=== PATIENT | female | born 1980 | race Caucasian/White ===

== ENCOUNTER 2020-05-22 02:59 | Emergency (ER) | payer OTHER ==
[~2020-05-22] VITALS: Ht 185.4 cm; Wt 54.0 kg
[2020-05-22 03:04] VITALS: BP 151/94
--- NOTE | 2020-05-22 04:10 | NUR ---
PT WAS AT HOME STOOD UP AND FELT LIKE HER BACK GO PUT, SHE FELL TO THE FLOOR AND REQUIRED ASSITANCE TO GET UP. HAVING 10/10 PAIN. UNABLE TO LAY OR SIT ANY ANY COMFORTABLE POSITION DUE TO CONSTANT PAIN. PT STATES SHE CONTINUES TO HAVE BACK SPASMS. DENIES N/T TO EXTREMITIES. HAS A HX OF PRIOR DISCS INJURIES TO BACK. PT HAS A TEMP DIALYSIS CATH TO R UPPER CHEST, OLD AV SHUNT TO LEFT ARM NONFUCTIONING. BED IN LOWEST POSITION AND SIDERAIL UP X 1. ALLERGIES - NSAIDS, BACLOFEN, GABAPENTIN HX - ESRD
--- NOTE | 2020-05-22 04:10 | NUR ---
ER AT BEDSIDE
[2020-05-22] MEDS ORDERED: HYDROcodone/APAP 5/325 MG 1 TAB TAB ONE (04:14)
[2020-05-22] MEDS ORDERED: HYDROcodone/APAP 5/325 MG 1 TAB TAB PO ONE (04:35)
[2020-05-22 04:38] VITALS: BP 151/94
--- NOTE | 2020-05-22 04:38 | NUR ---
Patient discharged with v/s stable. Written and verbal after care instructions given and explained. Patient verbalized understanding. Ambulatory with steady gait. All questions addressed prior to discharge. Advised to follow up with PMD.
== END 2020-05-22 04:38 | disposition home or self-care (01) ==
LOC: MED 02:59
DX: M54.5 Low back pain (principal); G89.29 Other chronic pain; I12.0 Hypertensive chronic kidney disease with stage 5 chronic kidney disease or end stage renal disease; N18.6 End stage renal disease; Z99.2 Dependence on renal dialysis; Z88.8 Allergy status to other drugs, medicaments and biological substances
CPT/HCPCS: 99283

== ENCOUNTER 2020-11-28 12:10 | Emergency (ER) | payer OTHER ==
[~2020-11-28] VITALS: Ht 185.4 cm; Wt 104.3 kg
[2020-11-28 12:13] VITALS: BP 136/83
--- NOTE | 2020-11-28 13:27 | NUR ---
40 Y/O FEMALE BIB SELF C/O DYSURIA X 3 DAYS. PT STATES BURNING WITH URINATION, ITHING, PRESENCE OF NAUSEA/VOMITING, LOWER BACK/FLANK PAIN, AND CLOUODY SCOTT-COLORED URINE. DENIES ANY FEVER/CHILLS. PT STATES TAKING TYLENOL WITH CODEINE TO ADDRESS PAIN YESTERDAY; SOMEWHAT EFFCETIVE. PREVIOUS HX OF BLADDER/KIDNEY INFECTION THAT TURNED SEPTIC. AO4, BREATHING EVEN AND UNLABORED, SKIN WARM AND DRY. BED IN LOWEST POSITION, LOCKED, X1 SIDERAIL UP. PMHX - ESRD (DIALYSIS 2XS/WEEK) ALLERGIES - BACLOFEN, GABAPENTIN
[2020-11-28] MEDS ORDERED: ONDANSETRON 4 MG ODT PO ONE (14:00)
[2020-11-28] MEDS ORDERED: cefTRIAXone 1,000 MG in LIDOCAINE MPF 1% 2.1 ML IM ONE (14:00)
[2020-11-28] MEDS ORDERED: ONDA4TAB PO (14:05)
[2020-11-28] MEDS ORDERED: CEPH500C16 PO (14:05)
[2020-11-28] MEDS ORDERED: ACET-503 PO (14:05)
[2020-11-28] MEDS ORDERED: cefTRIAXone 1,000 MG VIAL ONE (14:16)
[2020-11-28] MEDS ORDERED: LIDOCAINE MPF 1% 5 ML ONE (14:16)
--- NOTE | 2020-11-28 14:28 | NUR ---
Patient discharged with v/s stable. Written and verbal after care instructions ABOUT UTI given and explained. Patient alert, oriented and verbalized understanding of instructions. Ambulatory with steady gait. All questions addressed prior to discharge. ID band removed. Patient advised to follow up with PMD. Rx of ACETAMINOPHEN/CODEINE, CEPHALEXIN, AND ZOFRAN given. Patient educated on indication of medication including possible reaction and side effects. Opportunity to ask questions provided and answered.
[2020-11-28 14:29] VITALS: BP 136/83
== END 2020-11-28 14:28 | disposition home or self-care (01) ==
LOC: MED 12:10
DX: N39.0 Urinary tract infection, site not specified (principal); I12.0 Hypertensive chronic kidney disease with stage 5 chronic kidney disease or end stage renal disease; N18.6 End stage renal disease; Z99.2 Dependence on renal dialysis; Z79.899 Other long term (current) drug therapy; Z88.6 Allergy status to analgesic agent; Z88.8 Allergy status to other drugs, medicaments and biological substances; Z90.49 Acquired absence of other specified parts of digestive tract; Z98.890 Other specified postprocedural states
CPT/HCPCS: 81002; 81025; 96372; 99283; J0696; J2001; Q0162

== ENCOUNTER 2020-12-08 23:55 | Emergency (ER) | payer OTHER ==
[~2020-12-08] VITALS: Ht 185.4 cm; Wt 105.7 kg
[~2020-12-08 23:55] MED LIST: ACET-503 PO; CEPH500C16 PO; ONDA4TAB PO
[2020-12-09] VITALS: BP 156/90
--- NOTE | 2020-12-09 | NUR ---
TO BED AMBULATORY
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
[2020-12-09] MEDS ORDERED: HYDROcodone/APAP 5/325 MG 1 TAB TAB PO ONE (00:25)
[2020-12-09] MEDS ORDERED: ACET-9527 PO (00:34)
[2020-12-09] MEDS ORDERED: CYCL-654 PO (00:34)
[2020-12-09 00:52] VITALS: BP 156/90
--- NOTE | 2020-12-09 00:53 | NUR ---
Patient discharged with v/s stable. Written and verbal after care instructions given and explained. Patient alert, oriented and verbalized understanding of instructions. Ambulatory with steady gait. All questions addressed prior to discharge. ID band removed. Patient advised to follow up with PMD. Rx of NORCO; FLEXERIL given. Patient educated on indication of medication including possible reaction and side effects. Opportunity to ask questions provided and answered.
== END 2020-12-09 00:53 | disposition home or self-care (01) ==
LOC: MED 23:55
DX: S29.012D Strain of muscle and tendon of back wall of thorax, subsequent encounter (principal); W01.0XXD Fall on same level from slipping, tripping and stumbling without subsequent striking against object, subsequent encounter; I12.0 Hypertensive chronic kidney disease with stage 5 chronic kidney disease or end stage renal disease; N18.6 End stage renal disease
CPT/HCPCS: 99283

== ENCOUNTER 2021-01-25 01:14 | Emergency (ER) | payer OTHER ==
[~2021-01-25] VITALS: Ht 185.4 cm; Wt 99.8 kg
[~2021-01-25 01:14] MED LIST changes: +ACET-9527 PO; +CYCL-654 PO
[2021-01-25 01:25] VITALS: BP 127/84
--- NOTE | 2021-01-25 01:43 | NUR ---
TO ER BED 1
--- NOTE | 2021-01-25 02:50 | NUR ---
40 Y/O FEMALE PRESENTED TO ED C/O LEFT FOOT PAIN X 1 DAY. PT DENIES ANY TRAUMA OR INJURY TO LEFT FOOT, STATES "I WOKE UP THIS MORNING WITH THE PAIN AND HAVE NO IDEA WHY." PT DESCRIBES PAIN 10/10 , STABBING PAIN THAT SHOOTS UP HER LEG WHEN SHE PUTS PRESSURE ON HER LEFT FOOT. OBSERVED SWELLING ON LEFT FOOT , NO REDNESS OR DEFORMITY NOTED. + PEDAL PULSES NOTED. CAP REFIL < 3 SEC. PT STATES SHE TOOK TYLENOL X 2 HRS AGO W/ NO RELIEF. PT STATES SHE TRIED ICE, WARM PACK , WARM BATH W/ NO RELIEF OF PAIN. PT RESTING IN BED, LOCKED AND IN LOWEST POSITION, BED FLAT PER PT REQUEST. VSS. NO ACUTE DISTRESS NOTED. PT PROVIDED BLANKET FOR COMFORT AT THIS TIME. 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
[2021-01-25] MEDS: HYDROcodone/APAP 5/325 MG 1 TAB TAB PO ONE (02:55)
--- NOTE | 2021-01-25 02:55 | NUR ---
RADIOLOGY AT BEDSIDE.
[2021-01-25] MEDS ORDERED: ACET-9527 PO (03:09)
--- NOTE | 2021-01-25 03:35 | NUR ---
Per ERMD, crutches provided for patient. Patient demonstrates proper use of crutches.
[2021-01-25 03:38] VITALS: BP 127/84
--- NOTE | 2021-01-25 03:38 | NUR ---
Patient discharged with v/s stable. Written and verbal after care instructions given and explained. Patient alert, oriented and verbalized understanding of instructions. Ambulatory with steady gait. All questions addressed prior to discharge. ID band removed. Patient advised to follow up with PMD. Rx of Hydrocodon-Acetaminophen given. Patient educated on indication of medication including possible reaction and side effects. Opportunity to ask questions provided and answered.
== END 2021-01-25 03:38 | disposition home or self-care (01) ==
LOC: MED 01:14
DX: S99.922A Unspecified injury of left foot, initial encounter (principal); I12.0 Hypertensive chronic kidney disease with stage 5 chronic kidney disease or end stage renal disease; N18.6 End stage renal disease; Z99.2 Dependence on renal dialysis; Z79.899 Other long term (current) drug therapy; Z88.8 Allergy status to other drugs, medicaments and biological substances; X58.XXXA Exposure to other specified factors, initial encounter; Y93.89 Activity, other specified; Y92.89 Other specified places as the place of occurrence of the external cause; Y99.8 Other external cause status
CPT/HCPCS: 73630; 99283

== ENCOUNTER 2021-02-07 00:40 | Emergency (ER) | payer OTHER ==
[~2021-02-07] VITALS: Ht 185.4 cm; Wt 47.2 kg
[2021-02-07 00:43] VITALS: BP 138/87
--- NOTE | 2021-02-07 00:54 | NUR ---
PT AMBULATED TO BED #3. URINE SPECIMEN COLLECTED
[2021-02-07] MEDS ORDERED: ONDANSETRON 4 MG ODT PO ONE (01:20)
[2021-02-07] MEDS ORDERED: traMADol 50 MG TAB PO ONE (01:20)
[2021-02-07] MEDS ORDERED: cephALEXin 500 MG CAP PO ONE (01:20)
--- NOTE | 2021-02-07 01:21 | NUR ---
40/F C/O ABD PAIN WITH NAUSEA, PAIN DURING URINATION, URINARY HESITANCY, AND LOW BACK PAIN X 1 DAY. PT DENIES ANY FEVER, CHILLS, N/V/D MEDHX- ERSD STAGE 5, (DIALYSIS- /THU), AV FISTULA TO LT UPPER ARM ALLX- BACLOFEN, MOTRIN, GABAPENTIN
[2021-02-07 01:36] LABS: BASOPHILS # (AUTO) 0.1 K/uL (0.00-0.22); BASOPHILS % (AUTO) 0.6 % (0.0-2.0); EOSINOPHILS # (AUTO) 0.5 K/uL (0-0.4); EOSINOPHILS % (AUTO) 3.7 % (0.0-4.0); HEMATOCRIT 45.3 % (36-48); HEMOGLOBIN 14.5 g/dL (12.0-16.0); LYMPHOCYTES # (AUTO) 2.2 K/uL (2.5-16.5); LYMPHOCYTES % (AUTO) 15.6 % (20.5-51.1); MEAN CORPUSCULAR HEMOGLOBIN 29 pg (27-31); MEAN CORPUSCULAR HGB CONC 32 g/dL (33-37); MEAN CORPUSCULAR VOLUME 90.5 fL (80-94); MONOCYTES # (AUTO) 0.9 K/uL (0.8-1.0); MONOCYTES % (AUTO) 6.6 % (1.7-9.3); NEUTROPHILS # (AUTO) 10.2 K/uL (1.8-7.7); NEUTROPHILS % (AUTO) 73.5 % (42.2-75.2); PLATELET COUNT (AUTO) 226 K/uL (140-450); RED BLOOD CELL COUNT(AUTO) 5.01 MIL/uL (4.20-5.40); RED CELL DISTRIBUTION WIDTH 19.7 % (11.6-13.7); WHITE BLOOD COUNT (AUTO) 13.8 K/uL (4.8-10.8)
[2021-02-07 01:50] LABS: ANION GAP 15.1 (8-16); CARBON DIOXIDE 28.9 mmol/L (21-32); TOTAL BILIRUBIN 0.4 mg/dL (0.0-1.0)
[2021-02-07 01:53] LABS: CREATININE 7.6 mg/dL (0.6-1.3)
[2021-02-07 02:28] LABS: APPEARANCE,URINE CLEAR (CLEAR); BILIRUBIN,URINE NEGATIVE (NEGATIVE); BLOOD, URINE TRACE-L (NEGATIVE); COLOR,URINE YELLOW (YELLOW); LEUKOCYTE ESTERASE ,URINE NEGATIVE (NEGATIVE); NITRITE, URINE NEGATIVE (NEGATIVE); PH,URINE 7.5 (5.0-9.0); UGLUCOSE NEGATIVE (NEGATIVE)
[2021-02-07 02:41] LABS: RBC,URINE 0-5 /HPF (0-5); WBC,URINE 0-5 /HPF (0-5)
[2021-02-07] MEDS ORDERED: CEPH-588 PO (03:33)
[2021-02-07] MEDS ORDERED: TRAM50TA3 PO (03:44)
[2021-02-07 03:49] VITALS: BP 149/81
--- NOTE | 2021-02-07 03:49 | NUR ---
DCPatient discharged with v/s stable. Written and verbal after care instructions given and explained. Patient alert, oriented and verbalized understanding of instructions. Ambulatory with steady gait. All questions addressed prior to discharge. IV ACCESS AND ID band removed. Patient advised to follow up with PMD. Rx of TORADOL, KEFLEX given. Patient educated on indication of medication including possible reaction and side effects. Opportunity to ask questions provided and answered.
== END 2021-02-07 03:49 | disposition home or self-care (01) ==
LOC: MED 00:40
DX: N39.0 Urinary tract infection, site not specified (principal); I10 Essential (primary) hypertension; Z88.6 Allergy status to analgesic agent; Z88.8 Allergy status to other drugs, medicaments and biological substances; Z79.899 Other long term (current) drug therapy
CPT/HCPCS: 36415; 80053; 81001; 81025; 83605; 85025; 87040; 87086; 99284; Q0162

== ENCOUNTER 2021-05-29 01:07 | Emergency (ER) | payer OTHER ==
[~2021-05-29] VITALS: Ht 185.4 cm; Wt 99.8 kg
[~2021-05-29 01:07] MED LIST changes: +CEPH-588 PO; +TRAM50TA3 PO
[2021-05-29 01:26] VITALS: BP 140/95
--- NOTE | 2021-05-29 01:26 | NUR ---
TO BED AMBULATORY
[2021-05-29] MEDS ORDERED: HYDROcodone/APAP 5/325 MG 1 TAB TAB PO ONE (01:50)
--- NOTE | 2021-05-29 02:42 | NUR ---
patient to the bathroom. ambulated well.
[2021-05-29] MEDS ORDERED: IBUP-2213 PO (03:18)
[2021-05-29] MEDS ORDERED: ACET-503 PO (03:29)
--- NOTE | 2021-05-29 03:37 | NUR ---
Patient discharged with v/s stable. Written and verbal after care instructions given and explained. Patient alert, oriented and verbalized understanding of instructions. Ambulatory with steady gait. All questions addressed prior to discharge. ID band removed. Patient advised to follow up with PMD. Rx of Acetaminophen-codeine given. Patient educated on indication of medication including possible reaction and side effects. Opportunity to ask questions provided and answered.
[2021-05-29 03:49] VITALS: BP 140/95
== END 2021-05-29 03:37 | disposition home or self-care (01) ==
LOC: MED 01:07
DX: S40.012A Contusion of left shoulder, initial encounter (principal); I12.0 Hypertensive chronic kidney disease with stage 5 chronic kidney disease or end stage renal disease; N18.6 End stage renal disease; Z99.2 Dependence on renal dialysis; W01.198A Fall on same level from slipping, tripping and stumbling with subsequent striking against other object, initial encounter; Y92.89 Other specified places as the place of occurrence of the external cause; Y93.89 Activity, other specified; Y99.8 Other external cause status
CPT/HCPCS: 73030; 99283; Q0092

== ENCOUNTER 2021-06-09 22:48 | Emergency (ER) | payer OTHER ==
[~2021-06-09] VITALS: Ht 185.4 cm; Wt 108.4 kg
[2021-06-09 22:50] VITALS: BP 147/89
--- NOTE | 2021-06-09 23:01 | NUR ---
PT SENT TO LOBBY
--- NOTE | 2021-06-09 23:15 | NUR ---
LABS DRAWN BY MOISÉS FROM LAB
--- NOTE | 2021-06-09 23:20 | NUR ---
URINE SAMPLE WALKED TO LAB
[2021-06-09 23:28] LABS: APPEARANCE,URINE SL CLOUDY (CLEAR); BILIRUBIN,URINE NEGATIVE (NEGATIVE); BLOOD, URINE 3+ (NEGATIVE); COLOR,URINE YELLOW (YELLOW); LEUKOCYTE ESTERASE ,URINE NEGATIVE (NEGATIVE); NITRITE, URINE NEGATIVE (NEGATIVE); UGLUCOSE NEGATIVE (NEGATIVE)
[2021-06-09 23:29] LABS: BASOPHILS # (AUTO) 0.1 K/uL (0.00-0.22); EOSINOPHILS # (AUTO) 0.4 K/uL (0-0.4); EOSINOPHILS % (AUTO) 4.6 % (0.0-4.0); HEMATOCRIT 44.3 % (36-48); HEMOGLOBIN 14.4 g/dL (12.0-16.0); LYMPHOCYTES # (AUTO) 2.2 K/uL (2.5-16.5); LYMPHOCYTES % (AUTO) 24.2 % (20.5-51.1); MEAN CORPUSCULAR HEMOGLOBIN 30 pg (27-31); MEAN CORPUSCULAR HGB CONC 32 g/dL (33-37); MEAN CORPUSCULAR VOLUME 93.2 fL (80-94); MONOCYTES # (AUTO) 0.5 K/uL (0.8-1.0); MONOCYTES % (AUTO) 5.7 % (1.7-9.3); NEUTROPHILS # (AUTO) 5.7 K/uL (1.8-7.7); NEUTROPHILS % (AUTO) 64.5 % (42.2-75.2); PLATELET COUNT (AUTO) 194 K/uL (140-450); RED BLOOD CELL COUNT(AUTO) 4.75 MIL/uL (4.20-5.40); RED CELL DISTRIBUTION WIDTH 19.9 % (11.6-13.7); WHITE BLOOD COUNT (AUTO) 8.9 K/uL (4.8-10.8)
[2021-06-09 23:35] LABS: RBC,URINE 11-20 (MOD) /HPF (0-5)
[2021-06-09 23:41] LABS: ALBUMIN 3.3 g/dL (3.4-5.0); CARBON DIOXIDE 26.1 mmol/L (21-32); POTASSIUM 4.1 mmol/L (3.5-5.1); TOTAL BILIRUBIN 0.3 mg/dL (0.0-1.0)
--- NOTE | 2021-06-09 23:46 | NUR ---
PT TAKEN TO CT
[2021-06-10] MEDS ORDERED: MORPHINE SULFATE 4 MG/ML SYR IVP ONE (00:05)
[2021-06-10] MEDS ORDERED: ONDANSETRON 4 MG/2 ML VIAL IVP ONE (00:05)
[2021-06-10] MEDS ORDERED: PANTOPRAZOLE 40 MG INJ VIAL IVP ONE (00:05)
[2021-06-10] MEDS ORDERED: LEVOFLOXACIN 500 MG/D5W PREMIX 100 ML IV ONE (00:20)
--- NOTE | 2021-06-10 01:15 | NUR ---
40/F BIB SELF C/O ABDOMINAL PAIN AND VOMITING. STATES SINCE YESTERDAY SHE HAS HAD WORSENING STABBING ABDOMINAL PAIN AND HAS HAD 5-6 EPISODES OF VOMITING, STATES SHE RECEIVED DIALYSIS YESTERDAY AT 4AM, LEFT ARM FISTULA. DENIES DIARRHA, CP, SOB, FEVER OR CHILLS. REPORTS TAKING IBUPROFEN AND TYLENOL WITH NO HELP. MEDHX: KIDNEY FAILURE (DIALYSIS THURSDAY AND THURSDAY) ALLERGIES: BACLOFEN, GABAPENTIN, NSAIDS
--- NOTE | 2021-06-10 01:49 | NUR ---
PT FELT ITCHY AT IV SITE WHEN LEVAQUIN WAS BEING ADMINISTERED. DIONICIO MACIAS MADE AWARE. ORDERED BENADRYL 25MG IVP ONCE, ORDER CARRIED OUT.
[2021-06-10] MEDS ORDERED: diphenhydrAMINE 50 MG/ML VIAL IVP ONE (01:50)
--- NOTE | 2021-06-10 03:12 | NUR ---
PT IS AWAKE AND ALERT. ALL NEEDS MET AT THIS TIME. VSS. PT IS IN STABLE CONDITION. BED LOCKED IN LOWEST POSITION.
[2021-06-10 03:25] VITALS: BP 143/89
--- NOTE | 2021-06-10 03:25 | NUR ---
Patient discharged with v/s stable. Written and verbal after care instructions given and explained. Patient alert, oriented and verbalized understanding of instructions. Ambulatory with steady gait. All questions addressed prior to discharge. ID band removed. Patient advised to follow up with PMD. Rx of FAMOTIDINE, TRAMADOL, AND CIPROFLOXACIN given. Patient educated on indication of medication including possible reaction and side effects. Opportunity to ask questions provided and answered.
== END 2021-06-10 03:25 | disposition home or self-care (01) ==
LOC: MED 22:48
DX: N39.0 Urinary tract infection, site not specified (principal); Q61.3 Polycystic kidney, unspecified; I12.9 Hypertensive chronic kidney disease with stage 1 through stage 4 chronic kidney disease, or unspecified chronic kidney disease; N18.9 Chronic kidney disease, unspecified; F17.210 Nicotine dependence, cigarettes, uncomplicated; Z98.890 Other specified postprocedural states; Z79.899 Other long term (current) drug therapy; Z88.8 Allergy status to other drugs, medicaments and biological substances; Z90.49 Acquired absence of other specified parts of digestive tract
CPT/HCPCS: 36415; 74176; 80053; 81001; 81025; 82150; 83690; 85025; 87086; 96365; 96375; 99284; C9113; J1200; J1956; J2270; J2405

== ENCOUNTER 2021-08-15 23:20 | Emergency (ER) | payer OTHER ==
[~2021-08-15] VITALS: Ht 185.4 cm; Wt 104.3 kg
[2021-08-15 23:30] VITALS: BP 156/102
--- NOTE | 2021-08-15 23:33 | NUR ---
TO LOBBY A/W BED AMBULATORY
[2021-08-16] MEDS ORDERED: HYDR-5080 PO (00:54)
[2021-08-16] MEDS ORDERED: HYDROcodone/APAP 7.5/325 MG 1 TAB PO ONE (00:55)
[2021-08-16 01:35] VITALS: BP 156/102
== END 2021-08-16 01:36 | disposition home or self-care (01) ==
LOC: MED 23:20
DX: M54.50 Low back pain, unspecified (principal); I10 Essential (primary) hypertension; Z79.899 Other long term (current) drug therapy; Z88.8 Allergy status to other drugs, medicaments and biological substances
CPT/HCPCS: 99283

== ENCOUNTER 2021-08-24 19:05 | Emergency (ER) | payer OTHER ==
[~2021-08-24] VITALS: Ht 185.4 cm; Wt 104.3 kg
[~2021-08-24 19:05] MED LIST changes: +HYDR-5080 PO
[2021-08-24 19:24] VITALS: BP 149/90
--- NOTE | 2021-08-24 19:24 | NUR ---
TO BED AMBULATORY
--- NOTE | 2021-08-24 19:42 | NUR ---
Dr. Hoskins examining patient.
--- NOTE | 2021-08-24 19:45 | NUR ---
RECEIVED IN BED 6 WITH C/O LOWER ABD PAIN WITH HERNIA AND VOMITING SINCE YESTERDAY. IS AWAKE AND ALERT. APPEARS IN NAD.
[2021-08-24] MEDS ORDERED: HYDR-5191 PO (19:52)
--- NOTE | 2021-08-24 19:58 | NUR ---
Patient discharged with v/s stable. Written and verbal after care instructions given and explained. Patient alert, oriented and verbalized understanding of instructions. Ambulatory with steady gait. All questions addressed prior to discharge. ID band removed. Patient advised to follow up with PMD. Rx of HYDROCODONE given. Patient educated on indication of medication including possible reaction and side effects. Opportunity to ask questions provided and answered.
[2021-08-24] MEDS ORDERED: DOPPLER MC ONE (20:15)
== END 2021-08-24 19:58 | disposition home or self-care (01) ==
LOC: MED 19:05
DX: R10.9 Unspecified abdominal pain (principal); I10 Essential (primary) hypertension; Z79.899 Other long term (current) drug therapy; Z88.8 Allergy status to other drugs, medicaments and biological substances
CPT/HCPCS: 99283

== ENCOUNTER 2021-11-05 22:41 | Emergency (ER) | payer OTHER ==
[~2021-11-05] VITALS: Ht 185.4 cm; Wt 104.3 kg
[~2021-11-05 22:41] MED LIST changes: +HYDR-5191 PO
[2021-11-05 23:07] VITALS: BP 153/110
--- NOTE | 2021-11-05 23:14 | NUR ---
PT AMBULATED TO BED 05.
--- NOTE | 2021-11-05 23:33 | NUR ---
41 YO/F BIB SELF W C/O EPIGASTRIC PAIN 9/10 STABBING LIKE NON RAD CONSTANT X3 DAYS + VOMITING WHICH PT RELATES TO HX OF PEPTIC ULCER. PT DENIES BLOOD IN EMESIS. PT DENIES F/C/D/C. PT HAS FISTULA TO L UPPER ARM D/T HX OF PKD. DIALYSIS T,S. PT SITTING IN BED LOCKED IN LOWEST POSITION W X1 SIDERAIL UP. BREATHING EVEN AND UNLABORED. NAD NOTED, WILL CONTINUE TO MONITOR. PMH:PKD ALLERGIES: MUSCLE RELAXANTS.
[2021-11-05] MEDS ORDERED: FAMOTIDINE 20 MG/2 ML VIAL IVP ONE (23:35)
[2021-11-05] MEDS ORDERED: MORPHINE SULFATE 4 MG/ML SYR IVP ONE (23:35)
[2021-11-05 23:50] LABS: BASOPHILS # (AUTO) 0.1 K/uL (0.00-0.22); EOSINOPHILS # (AUTO) 0.3 K/uL (0-0.4); EOSINOPHILS % (AUTO) 3.9 % (0.0-4.0); HEMATOCRIT 38.8 % (36-48); HEMOGLOBIN 12.7 g/dL (12.0-16.0); LYMPHOCYTES # (AUTO) 1.7 K/uL (2.5-16.5); LYMPHOCYTES % (AUTO) 19.5 % (20.5-51.1); MEAN CORPUSCULAR HEMOGLOBIN 32 pg (27-31); MEAN CORPUSCULAR HGB CONC 33 g/dL (33-37); MEAN CORPUSCULAR VOLUME 96.1 fL (80-94); MONOCYTES # (AUTO) 0.7 K/uL (0.8-1.0); MONOCYTES % (AUTO) 7.7 % (1.7-9.3); NEUTROPHILS # (AUTO) 5.8 K/uL (1.8-7.7); NEUTROPHILS % (AUTO) 67.9 % (42.2-75.2); PLATELET COUNT (AUTO) 222 K/uL (140-450); RED BLOOD CELL COUNT(AUTO) 4.03 MIL/uL (4.20-5.40); RED CELL DISTRIBUTION WIDTH 17.1 % (11.6-13.7); WHITE BLOOD COUNT (AUTO) 8.6 K/uL (4.8-10.8)
[2021-11-05 23:51] LABS: APPEARANCE,URINE CLEAR (CLEAR); BILIRUBIN,URINE NEGATIVE (NEGATIVE); BLOOD, URINE TRACE-I (NEGATIVE); COLOR,URINE YELLOW (YELLOW); LEUKOCYTE ESTERASE ,URINE NEGATIVE (NEGATIVE); NITRITE, URINE NEGATIVE (NEGATIVE); PH,URINE 7.5 (5.0-9.0); UGLUCOSE NEGATIVE (NEGATIVE)
[2021-11-06 00:07] LABS: RBC,URINE 0-5 /HPF (0-5); WBC,URINE 0-5 /HPF (0-5)
[2021-11-06 00:15] LABS: ALBUMIN 2.9 g/dL (3.4-5.0); ANION GAP 13.2 (8-16); CARBON DIOXIDE 30.8 mmol/L (21-32); TOTAL BILIRUBIN 0.4 mg/dL (0.0-1.0)
[2021-11-06 00:26] LABS: CREATININE 11.3 mg/dL (0.6-1.3)
--- NOTE | 2021-11-06 00:32 | NUR ---
PT REPORTS ABDOMINAL PAIN IMPROVEMENT.,
--- NOTE | 2021-11-06 01:19 | NUR ---
Mallory davis in [facility] - 11/06/21 at 0120 by SELINA PT AMBULATED TO BATHROOM W STEADY GAIT. PT DENIES ANY PAIN OR SYMPTOMS. VSS
[2021-11-06] MEDS ORDERED: FAMO-92 PO (01:30)
--- NOTE | 2021-11-06 01:30 | NUR ---
PT REPORTS FEELING BETTER, NO NAUSEA, PAIN 2/10.
[2021-11-06 01:38] VITALS: BP 158/93
--- NOTE | 2021-11-06 01:38 | NUR ---
Patient discharged with v/s stable. Written and verbal after care instructions given and explained. Patient alert, oriented and verbalized understanding of instructions. Ambulatory with steady gait. All questions addressed prior to discharge. ID band removed. Patient advised to follow up with PMD. Rx of PEPCID given. Patient educated on indication of medication including possible reaction and side effects. Opportunity to ask questions provided and answered. PT DISCHARGE DONE BY DIONICIO MACIAS.
== END 2021-11-06 01:38 | disposition home or self-care (01) ==
LOC: MED 22:41
DX: L98.499 Non-pressure chronic ulcer of skin of other sites with unspecified severity (principal); R10.13 Epigastric pain; R11.2 Nausea with vomiting, unspecified; I10 Essential (primary) hypertension; Q61.3 Polycystic kidney, unspecified; F17.210 Nicotine dependence, cigarettes, uncomplicated; Z71.6 Tobacco abuse counseling; Z79.899 Other long term (current) drug therapy; Z88.8 Allergy status to other drugs, medicaments and biological substances
CPT/HCPCS: 36415; 80053; 81001; 85025; 87086; 96374; 96375; 99284; J2270; J3490

== ENCOUNTER 2022-03-09 20:11 | Emergency (ER) | payer OTHER ==
[~2022-03-09] VITALS: Ht 185.4 cm; Wt 104.3 kg
[~2022-03-09 20:11] MED LIST changes: +FAMO-92 PO
[2022-03-09 20:20] VITALS: BP 147/74
[2022-03-09] MEDS ORDERED: HYDROcodone/APAP 10/325 MG 1 TAB TAB PO ONE (22:15)
[2022-03-09] MEDS ORDERED: HYDR-5080 PO (22:25)
[2022-03-09 23:19] VITALS: BP 138/68
== END 2022-03-09 23:20 | disposition home or self-care (01) ==
LOC: MED 20:11
DX: S29.012A Strain of muscle and tendon of back wall of thorax, initial encounter (principal); I10 Essential (primary) hypertension; N18.6 End stage renal disease; Z88.5 Allergy status to narcotic agent; Z88.8 Allergy status to other drugs, medicaments and biological substances; X58.XXXA Exposure to other specified factors, initial encounter; Y93.9 Activity, unspecified; Y92.89 Other specified places as the place of occurrence of the external cause; Y99.8 Other external cause status
CPT/HCPCS: 81002; 81025; 99283

== ENCOUNTER 2022-03-30 00:01 | Emergency (ER) | payer OTHER ==
[~2022-03-30] VITALS: Ht 185.4 cm; Wt 108.9 kg
[2022-03-30 00:13] VITALS: BP 154/90
--- NOTE | 2022-03-30 00:14 | NUR ---
TO LOBBY A/W BED AMBULATORY
[2022-03-30] MEDS ORDERED: MORPHINE SULFATE 4 MG/ML SYR IM ONE (00:25)
--- NOTE | 2022-03-30 00:43 | NUR ---
PT AMBULATED TO BED#9
[2022-03-30 01:27] VITALS: BP 116/86
[2022-03-30] MEDS ORDERED: CYCL-711 PO (19:12)
[2022-03-30] MEDS ORDERED: DICL100G5 TP (19:12)
[2022-03-30] MEDS ORDERED: LID5T TP (19:12)
== END 2022-03-30 01:24 | disposition home or self-care (01) ==
LOC: MED 00:01
DX: S33.5XXA Sprain of ligaments of lumbar spine, initial encounter (principal); I10 Essential (primary) hypertension; N18.9 Chronic kidney disease, unspecified; Z88.8 Allergy status to other drugs, medicaments and biological substances; Z88.5 Allergy status to narcotic agent; Z98.890 Other specified postprocedural states; W18.30XA Fall on same level, unspecified, initial encounter; Y93.89 Activity, other specified; Y92.89 Other specified places as the place of occurrence of the external cause; Y99.8 Other external cause status
CPT/HCPCS: 96372; 99283; J2270

== ENCOUNTER 2022-03-30 16:59 | Emergency (ER) | payer OTHER ==
[~2022-03-30] VITALS: Ht 185.4 cm; Wt 109.3 kg
[2022-03-30 17:10] VITALS: BP 175/96
--- NOTE | 2022-03-30 17:19 | NUR ---
PT AMBULATED TO BATHROOM
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
--- NOTE | 2022-03-30 18:10 | NUR ---
Dr. Helm at bedside evaluating patient at bedside.
[2022-03-30] MEDS ORDERED: LIDOCAINE 5% 1 EA PATCH TP STA (18:16)
[2022-03-30] MEDS ORDERED: KETOROLAC 30 MG/ML VIAL IM ONE (18:20)
[2022-03-30] MEDS ORDERED: ACETAMINOPHEN EXTRA STRENGTH 500 MG TAB PO ONE (18:50)
--- NOTE | 2022-03-30 19:05 | NUR ---
PT REFUSING MEDS. DR BARTLETT NOTIFIED
[2022-03-30] MEDS ORDERED: LID5T TP (19:12)
[2022-03-30] MEDS ORDERED: CYCL-711 PO (19:12)
[2022-03-30] MEDS ORDERED: DICL100G5 TP (19:12)
[2022-03-30 19:20] VITALS: BP 175/96
--- NOTE | 2022-03-30 19:20 | NUR ---
Patient discharged with v/s stable. Written and verbal after care instructions given and explained. Patient alert, oriented and verbalized understanding of instructions. Ambulatory with steady gait. All questions addressed prior to discharge. ID band removed. Patient advised to follow up with PMD. Rx of FLEXERIL, LIDODERM 5% PATCH, AND DICLOFENAC SODIUM given. Patient educated on indication of medication including possible reaction and side effects. Opportunity to ask questions provided and answered.
== END 2022-03-30 19:20 | disposition home or self-care (01) ==
LOC: MED 16:59
DX: S30.0XXA Contusion of lower back and pelvis, initial encounter (principal); R07.81 Pleurodynia; I10 Essential (primary) hypertension; Q61.3 Polycystic kidney, unspecified; Z76.5 Malingerer [conscious simulation]; Z88.8 Allergy status to other drugs, medicaments and biological substances; Z79.899 Other long term (current) drug therapy; W19.XXXA Unspecified fall, initial encounter; Y93.89 Activity, other specified; Y92.89 Other specified places as the place of occurrence of the external cause; Y99.8 Other external cause status
CPT/HCPCS: 71101; 72100; 81002; 81025; 99284

== ENCOUNTER 2022-07-07 17:44 | Emergency (ER) | payer OTHER ==
[~2022-07-07] VITALS: Ht 185.4 cm; Wt 107.5 kg
[~2022-07-07 17:44] MED LIST changes: +CYCL-711 PO; +DICL100G5 TP; +LID5T TP
[2022-07-07 18:12] VITALS: BP 164/92
--- NOTE | 2022-07-07 18:40 | NUR ---
41YO FEMALE PT C/O SHARP R HIP PAIN XTODAY. STATES RADIATION DOWN GLUTE AND LEG. STATES PAIN AFTER "STEPPING DOWN". PAIN AT MOST ON MOVEMENT . DENIES RELIEF AFTER TYLENOL . NO PHYSICAL INJURY NOTED . CAP REFILL <3 THROUGHOUT . PT AAOX4, NO VIISBLE DISTRESS. HX: ESPL, DIALYSIS T/SAT ALLERGIES : MUSCLE RELAXANTS
--- NOTE | 2022-07-07 18:43 | NUR ---
PT TAKEN TO XRAY VIA WHEELCHAIR
--- NOTE | 2022-07-07 19:30 | NUR ---
REPORT GIVEN TO FREDRICK SIMMONS. TRANSFER OF CARE AT THIS TIME
--- NOTE | 2022-07-07 19:59 | NUR ---
PENDING XRAY RESULTS. PENDING DISPO
[2022-07-07] MEDS ORDERED: ACET-8386 PO ×2 (20:29→21:23)
[2022-07-07] MEDS ORDERED: SULF-58 PO ×2 (20:29→21:23)
[2022-07-07 20:37] VITALS: BP 164/92
== END 2022-07-07 20:37 | disposition home or self-care (01) ==
LOC: MED 17:44
DX: M25.551 Pain in right hip (principal); M16.11 Unilateral primary osteoarthritis, right hip; N39.0 Urinary tract infection, site not specified; I10 Essential (primary) hypertension; Z79.899 Other long term (current) drug therapy; Z88.8 Allergy status to other drugs, medicaments and biological substances
CPT/HCPCS: 73502; 81002; 81025; 87086; 99284

== ENCOUNTER 2022-07-30 17:14 | Emergency (ER) | payer OTHER ==
[~2022-07-30] VITALS: Ht 185.4 cm; Wt 104.3 kg
[~2022-07-30 17:14] MED LIST changes: +ACET-8386 PO; +SULF-58 PO
[2022-07-30 17:49] VITALS: BP 142/75
[2022-07-30] MEDS ORDERED: traMADol 50 MG TAB PO ONE (22:30)
[2022-07-30] MEDS ORDERED: DEXAMETHASONE 10 MG/ML VIAL IM ONE (22:30)
[2022-07-30] MEDS ORDERED: TRAM-748 PO (22:39)
[2022-07-31] MEDS ORDERED: DEXAMETHASONE 10 MG/ML VIAL ONE (00:12)
[2022-07-31] MEDS ORDERED: traMADol 50 MG TAB ONE (00:12)
[2022-07-31 00:19] VITALS: BP 136/70
--- NOTE | 2022-07-31 00:19 | NUR ---
Patient discharged. Written and verbal after care instructions given and explained about Sciatica. Patient alert, oriented and verbalized understanding of instructions. Ambulatory with steady gait. All questions addressed prior to discharge. ID band removed. Patient advised to follow up with PMD. Rx of Ultram given. Patient educated on indication of medication including possible reaction and side effects. Opportunity to ask questions provided and answered.
== END 2022-07-31 00:19 | disposition home or self-care (01) ==
LOC: MED 17:14
DX: M54.32 Sciatica, left side (principal); I10 Essential (primary) hypertension; Z88.8 Allergy status to other drugs, medicaments and biological substances; Z79.899 Other long term (current) drug therapy
CPT/HCPCS: 81002; 81025; 99283; J1100

== ENCOUNTER 2022-09-17 17:52 | Emergency (ER) | payer OTHER ==
[~2022-09-17] VITALS: Ht 185.4 cm; Wt 99.8 kg
[~2022-09-17 17:52] MED LIST changes: -ACET-8386 PO; +ACET-8905 PO; +TRAM-748 PO
[2022-09-17 17:59] VITALS: BP 154/86
--- NOTE | 2022-09-17 18:03 | NUR ---
PT AMBULATED TO LOBBY
--- NOTE | 2022-09-17 19:59 | NUR ---
42 Y/O F presnets with abdominal pain 9 since thursday night. pt stated she has been nauseated with some diarrhea. pt stated she took her last norco on thursday with minor relief. pt did have surgery for L kidney removal on the and a L fistula. pt is A&O x4 and is on dialysis 3x/week T,,Thu. Last dialysis treatment was thursday, pt did state she missed tues due to pain. PMH- polycistic kidney disease, HTN allergies- baclofen, gabapentin, NSAIDS
--- NOTE | 2022-09-17 20:08 | NUR ---
Dr. Borja at bedside
[2022-09-17] MEDS ORDERED: ONDANSETRON 4 MG/2 ML VIAL IVP ONE (20:15)
[2022-09-17] MEDS ORDERED: MORPHINE SULFATE 4 MG/ML SYR IVP ONE ×2 (20:15→22:20)
--- NOTE | 2022-09-17 20:20 | NUR ---
pt ambulated to restroom
--- NOTE | 2022-09-17 20:25 | NUR ---
pt back in room, on monitor
[2022-09-17 20:52] LABS: BASOPHILS # (AUTO) 0.1 K/uL (0.00-0.22); BASOPHILS % (AUTO) 0.9 % (0.0-2.0); EOSINOPHILS # (AUTO) 0.4 K/uL (0-0.4); EOSINOPHILS % (AUTO) 6.4 % (0.0-4.0); HEMATOCRIT 35.5 % (36-48); HEMOGLOBIN 11.7 g/dL (12.0-16.0); LYMPHOCYTES # (AUTO) 1.4 K/uL (2.5-16.5); LYMPHOCYTES % (AUTO) 21.5 % (20.5-51.1); MEAN CORPUSCULAR HEMOGLOBIN 33 pg (27-31); MEAN CORPUSCULAR HGB CONC 33 g/dL (33-37); MEAN CORPUSCULAR VOLUME 100.9 fL (80-94); MONOCYTES # (AUTO) 0.4 K/uL (0.8-1.0); MONOCYTES % (AUTO) 6.8 % (1.7-9.3); NEUTROPHILS # (AUTO) 4.1 K/uL (1.8-7.7); NEUTROPHILS % (AUTO) 64.4 % (42.2-75.2); PLATELET COUNT (AUTO) 221 K/uL (140-450); RED BLOOD CELL COUNT(AUTO) 3.52 MIL/uL (4.20-5.40); RED CELL DISTRIBUTION WIDTH 14.4 % (11.6-13.7); WHITE BLOOD COUNT (AUTO) 6.4 K/uL (4.8-10.8)
--- NOTE | 2022-09-17 20:55 | NUR ---
pt to XRAY
--- NOTE | 2022-09-17 21:00 | NUR ---
pt back from xray
[2022-09-17 21:11] LABS: APPEARANCE,URINE HAZY (CLEAR); COLOR,URINE STRAW (YELLOW); PH,URINE 7.5 (5.0-9.0); UGLUCOSE NEGATIVE (NEGATIVE)
[2022-09-17 21:12] LABS: BILIRUBIN,URINE NEGATIVE (NEGATIVE); BLOOD, URINE TRACE (NEGATIVE); LEUKOCYTE ESTERASE ,URINE 3+ (NEGATIVE); NITRITE, URINE NEGATIVE (NEGATIVE); RBC,URINE 0-5 /HPF (0-5)
--- NOTE | 2022-09-17 21:20 | NUR ---
Dr. Borja at bedside
[2022-09-17 21:30] LABS: ALBUMIN 3.4 g/dL (3.4-5.0); CARBON DIOXIDE 25.2 mmol/L (21-32); POTASSIUM 5.2 mmol/L (3.5-5.1); TOTAL BILIRUBIN 0.4 mg/dL (0.0-1.0)
[2022-09-17 21:34] LABS: CREATININE 11.3 mg/dL (0.6-1.3)
--- NOTE | 2022-09-17 22:35 | NUR ---
pt to CT with contrast
--- NOTE | 2022-09-17 22:45 | NUR ---
pt returned from CT
[2022-09-17] MEDS ORDERED: cefTRIAXone 1,000 MG VIAL ONE (23:37)
[2022-09-17] MEDS ORDERED: ACET-8905 PO (23:50)
[2022-09-17] MEDS ORDERED: CIPR500T4 PO (23:50)
[2022-09-18] MEDS ORDERED: diphenhydrAMINE 50 MG/ML VIAL IVP ONE (00:10)
--- NOTE | 2022-09-18 00:12 | NUR ---
PATIENT NOTIFIED NURSING STAFF THAT IV ROCEPHIN WAS CAUSING HER TO ITCH, IV MEDICATION WAS DISCONTINUED AND LINE WAS FLUSHED. POSSIBLE ALLERGY TO ROCEPHIN IS NOT DOCUMENTED IN EMR. NOTIFIED MD OF PATIENT CONCERNS. OKAY TO STOP INFUSION. MD ORDERING BENADRYL FOR PATIENT.
[2022-09-18 00:37] VITALS: BP 149/85
--- NOTE | 2022-09-18 00:37 | NUR ---
Patient discharged with v/s stable. Written and verbal after care instructions given and explained. Patient alert, oriented and verbalized understanding of instructions. Ambulatory with steady gait. All questions addressed prior to discharge. ID band removed. Patient advised to follow up with PMD. Rx of NORCO, CIPROFLOXACIN given. Patient educated on indication of medication including possible reaction and side effects. Opportunity to ask questions provided and answered. DX: URINARY TRACT INFECTION, ADULT, ABDOMINAL PAIN, ADULT
== END 2022-09-18 00:37 | disposition home or self-care (01) ==
LOC: MED 17:52
DX: N39.0 Urinary tract infection, site not specified (principal); Q61.3 Polycystic kidney, unspecified; I12.0 Hypertensive chronic kidney disease with stage 5 chronic kidney disease or end stage renal disease; N18.6 End stage renal disease; Z99.2 Dependence on renal dialysis; Z79.899 Other long term (current) drug therapy; Z98.890 Other specified postprocedural states; Z88.6 Allergy status to analgesic agent; Z88.8 Allergy status to other drugs, medicaments and biological substances
CPT/HCPCS: 36415; 74176; 74177; 80053; 81001; 81025; 83690; 85025; 87086; 96374; 96375; 99285; J0696; J1200; J2270; J2405; Q9967; 99284

== ENCOUNTER 2022-12-24 16:30 | Emergency (ER) | payer OTHER ==
[~2022-12-24] VITALS: Ht 185.4 cm; Wt 94.8 kg
[~2022-12-24 16:30] MED LIST changes: +CIPR500T4 PO
[2022-12-24 16:52] VITALS: BP 152/91
[2022-12-24] MEDS ORDERED: ACET-8905 PO (19:00)
--- NOTE | 2022-12-24 19:25 | NUR ---
Patient discharged with v/s stable. Written and verbal after care instructions CHEST WALL PAIN AFTER FALL given and explained. Patient verbalized understanding. Ambulatory with steady gait. All questions addressed prior to discharge. Advised to follow up with PMD. PT. AMBULATES WITH NO DIFFICULTY. NO ACUTE DISTRESS
== END 2022-12-24 19:25 | disposition home or self-care (01) ==
LOC: MED 16:30
DX: R07.89 Other chest pain (principal); I10 Essential (primary) hypertension; Z87.448 Personal history of other diseases of urinary system; Z79.899 Other long term (current) drug therapy; Z79.891 Long term (current) use of opiate analgesic; Z79.2 Long term (current) use of antibiotics; Z88.6 Allergy status to analgesic agent; Z88.8 Allergy status to other drugs, medicaments and biological substances; Z91.048 Other nonmedicinal substance allergy status; W01.198A Fall on same level from slipping, tripping and stumbling with subsequent striking against other object, initial encounter; Y92.89 Other specified places as the place of occurrence of the external cause; Y93.89 Activity, other specified; Y99.8 Other external cause status
CPT/HCPCS: 71101; 99283

== ENCOUNTER 2023-01-18 04:20 | Emergency (ER) | payer OTHER ==
[~2023-01-18] VITALS: Ht 185.4 cm; Wt 90.3 kg
[2023-01-18 04:40] VITALS: BP 129/87
--- NOTE | 2023-01-18 04:40 | NUR ---
Pt to bed 12.
--- NOTE | 2023-01-18 04:58 | NUR ---
Attempted to collect urine, per pt unable to produce urine due to renal failure. ERMD notified.
--- NOTE | 2023-01-18 04:58 | NUR ---
ASSUMED CARE , PT C/O MID BACK PAIN , NO TRAUMA, NON RAD
[2023-01-18] MEDS ORDERED: MORPHINE SULFATE 4 MG/ML SYR IM ONE (05:10)
--- NOTE | 2023-01-18 05:22 | NUR ---
MORPHINE 4 MG IM GIVEN
[2023-01-18] MEDS ORDERED: ACET-8905 PO (05:29)
[2023-01-18 06:00] VITALS: BP 122/88
--- NOTE | 2023-01-18 06:00 | NUR ---
Patient discharged with v/s stable. Written and verbal after care instructions given and explained. Patient verbalized understanding. Ambulatory with steady gait. Accompanied by friend home. All questions addressed prior to discharge. Advised to follow up with PMD.
[2023-01-18] MEDS ORDERED: HYDR-5080 PO (17:44)
[2023-01-19] MEDS ORDERED: HYDR-5191 PO (16:21)
== END 2023-01-18 06:00 | disposition home or self-care (01) ==
LOC: MED 04:20
DX: M54.6 Pain in thoracic spine (principal); I10 Essential (primary) hypertension; Z88.1 Allergy status to other antibiotic agents; Z88.6 Allergy status to analgesic agent; Z88.8 Allergy status to other drugs, medicaments and biological substances; Z79.899 Other long term (current) drug therapy; Z90.49 Acquired absence of other specified parts of digestive tract; Z98.890 Other specified postprocedural states
CPT/HCPCS: 96372; 99283; J2270

== ENCOUNTER 2023-02-14 18:22 | Emergency (ER) | payer OTHER ==
[~2023-02-14] VITALS: Ht 185.4 cm; Wt 95.3 kg
[2023-02-14 18:25] VITALS: BP 191/97
--- NOTE | 2023-02-14 18:32 | NUR ---
PT AMBULATORY TO BED 05
[2023-02-14] MEDS ORDERED: HYDROmorphone PFS 2 MG/ML SYR IM ONE (18:50)
--- NOTE | 2023-02-14 19:20 | NUR ---
MEDICATED ORDERED FOR 06/09 PAIN THEN TO RADIOLOGY VIA W/C
--- NOTE | 2023-02-14 19:35 | NUR ---
RETURNED FROM RADIOLOGY
[2023-02-14] MEDS ORDERED: LID5T TP (20:07)
[2023-02-14] MEDS ORDERED: HYDR-5191 PO (20:07)
[2023-02-14 20:30] VITALS: BP 191/97
--- NOTE | 2023-02-14 20:30 | NUR ---
Patient discharged with v/s stable. Written and verbal after care instructions given and explained. Patient alert, oriented and verbalized understanding of instructions. Ambulatory with steady gait. All questions addressed prior to discharge. ID band removed. Patient advised to follow up with PMD. Rx of HYDROCODONE AND LIDOCAINE PATCH given. Patient educated on indication of medication including possible reaction and side effects. Opportunity to ask questions provided and answered.
== END 2023-02-14 20:30 | disposition home or self-care (01) ==
LOC: MED 18:22
DX: M54.50 Low back pain, unspecified (principal); Q61.3 Polycystic kidney, unspecified; I12.0 Hypertensive chronic kidney disease with stage 5 chronic kidney disease or end stage renal disease; N18.6 End stage renal disease; Z99.2 Dependence on renal dialysis; Z79.899 Other long term (current) drug therapy; Z88.8 Allergy status to other drugs, medicaments and biological substances
CPT/HCPCS: 71046; 96372; 99283; J1170

== ENCOUNTER 2023-03-13 21:19 | Emergency (ER) | payer OTHER ==
[~2023-03-13] VITALS: Ht 185.4 cm; Wt 89.8 kg
[2023-03-13 21:41] VITALS: BP 163/100; PULSE 86; RESP 16; TEMP 97.4; O2SAT 100
--- NOTE | 2023-03-13 21:49 | NUR ---
TO LOBBY FOLLOWING TRIAGE
--- NOTE | 2023-03-14 00:57 | NUR ---
PT AMBULATED TO ANAMARIA
--- NOTE | 2023-03-14 01:04 | NUR ---
PT TO BED 02.
[2023-03-14] MEDS ORDERED: MORPHINE SULFATE 4 MG/ML SYR IM ONE (01:45)
[2023-03-14] MEDS ORDERED: predniSONE 20 MG TAB PO ONE (01:45)
[2023-03-14] MEDS ORDERED: PRED20TA5 PO (02:18)
[2023-03-14] MEDS ORDERED: EMLAC TP (02:18)
[2023-03-14] MEDS ORDERED: ACET-8905 PO (02:18)
[2023-03-14 02:27] VITALS: BP 163/100; PULSE 86; RESP 16; TEMP 97.4; O2SAT 100
--- NOTE | 2023-03-14 02:27 | NUR ---
Patient discharged with v/s stable. Written and verbal after care instructions given and explained. Patient alert, oriented and verbalized understanding of instructions. Ambulatory with steady gait. All questions addressed prior to discharge. ID band removed. Patient advised to follow up with PMD. Rx of LIDOCAINE AND NORCO given. Patient educated on indication of medication including possible reaction and side effects. Opportunity to ask questions provided and answered. DX: SHINGLES
== END 2023-03-14 02:27 | disposition home or self-care (01) ==
LOC: MED 21:19
DX: B02.9 Zoster without complications (principal); I12.0 Hypertensive chronic kidney disease with stage 5 chronic kidney disease or end stage renal disease; N18.6 End stage renal disease; Z99.2 Dependence on renal dialysis; Z98.890 Other specified postprocedural states; Z88.1 Allergy status to other antibiotic agents; Z88.8 Allergy status to other drugs, medicaments and biological substances; Z79.899 Other long term (current) drug therapy
CPT/HCPCS: 96372; 99283; J2270; J7512

== ENCOUNTER 2023-03-30 23:20 | Emergency (ER) | payer OTHER ==
[~2023-03-30] VITALS: Ht 185.4 cm; Wt 86.2 kg
[~2023-03-30 23:20] MED LIST changes: +EMLAC TP; +PRED20TA5 PO
[2023-03-30 23:40] VITALS: BP 178/103; PULSE 87; RESP 22; TEMP 98.9; O2SAT 99
[2023-03-31] MEDS ORDERED: HYDROcodone/APAP 10/325 MG 1 TAB TAB PO ONE (00:30)
[2023-03-31] MEDS ORDERED: LIDOCAINE 5% 1 EA PATCH TP ONE (00:30)
[2023-03-31] MEDS ORDERED: LID5T TP (01:49)
== END 2023-03-31 01:55 | disposition home or self-care (01) ==
LOC: MED 23:20
DX: S39.012A Strain of muscle, fascia and tendon of lower back, initial encounter (principal); I10 Essential (primary) hypertension; Q61.3 Polycystic kidney, unspecified; Z88.1 Allergy status to other antibiotic agents; Z88.8 Allergy status to other drugs, medicaments and biological substances; Z79.899 Other long term (current) drug therapy; Z98.890 Other specified postprocedural states
CPT/HCPCS: 99283

== ENCOUNTER 2023-05-07 22:36 | Emergency (ER) | payer OTHER ==
[~2023-05-07] VITALS: Ht 185.4 cm; Wt 97.5 kg
[~2023-05-07 22:36] MED LIST changes: +DICL100G32 TP; -DICL100G5 TP
[2023-05-07 22:47] VITALS: BP 165/98; PULSE 90; RESP 18; TEMP 97.3
[2023-05-07 22:58] VITALS: BP 165/98; PULSE 90; RESP 18; TEMP 97.3
[2023-05-08] MEDS ORDERED: ACET-10509 PO (02:15)
== END 2023-05-08 02:19 | disposition home or self-care (01) ==
LOC: MED 22:36
DX: S80.02XA Contusion of left knee, initial encounter (principal); I10 Essential (primary) hypertension; Q61.3 Polycystic kidney, unspecified; Z98.890 Other specified postprocedural states; Z79.899 Other long term (current) drug therapy; Z88.1 Allergy status to other antibiotic agents; Z88.8 Allergy status to other drugs, medicaments and biological substances; W19.XXXA Unspecified fall, initial encounter; Y93.89 Activity, other specified; Y92.89 Other specified places as the place of occurrence of the external cause; Y99.8 Other external cause status
CPT/HCPCS: 73562; 99283

== ENCOUNTER 2023-05-10 14:34 | Emergency (ER) | payer OTHER ==
[~2023-05-10] VITALS: Ht 185.4 cm; Wt 97.5 kg
[~2023-05-10 14:34] MED LIST changes: +ACET-10509 PO; -DICL100G32 TP; +DICL100G5 TP
[2023-05-10 14:48] VITALS: BP 170/77; PULSE 90; RESP 17; TEMP 98; O2SAT 98
[2023-05-10] MEDS ORDERED: oxyCODONE 10 MG TABER PO ONE (15:00)
[2023-05-10 15:15] VITALS: BP 144/77; PULSE 91; RESP 20; O2SAT 99
== END 2023-05-10 15:15 | disposition home or self-care (01) ==
LOC: MED 14:34
DX: M54.50 Low back pain, unspecified (principal); I12.0 Hypertensive chronic kidney disease with stage 5 chronic kidney disease or end stage renal disease; N18.6 End stage renal disease; Z99.2 Dependence on renal dialysis; Z79.899 Other long term (current) drug therapy
CPT/HCPCS: 99283

== ENCOUNTER 2023-05-19 10:40 | Emergency (ER) | payer OTHER ==
[~2023-05-19] VITALS: Ht 185.4 cm; Wt 97.5 kg
[2023-05-19 10:40] VITALS: BP 171/96; PULSE 86; RESP 20; TEMP 98; O2SAT 99
[~2023-05-19 10:40] MED LIST changes: +DICL100G32 TP; -DICL100G5 TP
[2023-05-19 10:52] VITALS: O2SAT 99
== END 2023-05-19 13:04 | disposition home or self-care (01) ==
LOC: MED 10:40
DX: M54.31 Sciatica, right side (principal); I12.0 Hypertensive chronic kidney disease with stage 5 chronic kidney disease or end stage renal disease; N18.6 End stage renal disease; Z99.2 Dependence on renal dialysis; Z88.8 Allergy status to other drugs, medicaments and biological substances; Z79.899 Other long term (current) drug therapy
CPT/HCPCS: 73502; 99283

== ENCOUNTER 2023-06-28 13:19 | Emergency (ER) | payer OTHER ==
[~2023-06-28] VITALS: Ht 185.4 cm; Wt 99.8 kg
[2023-06-28 13:38] VITALS: BP 189/95; PULSE 95; RESP 15; TEMP 97.5; O2SAT 100
[2023-06-28] MEDS ORDERED: MORPHINE SULFATE 4 MG/ML SYR IM ONE (14:10)
[2023-06-28] MEDS ORDERED: ACET-8905 PO (15:47)
[2023-06-28 16:11] VITALS: BP 145/88; PULSE 95; RESP 15; TEMP 97.5; O2SAT 100
== END 2023-06-28 16:11 | disposition home or self-care (01) ==
LOC: MED 13:19
DX: S20.211A Contusion of right front wall of thorax, initial encounter (principal); I12.0 Hypertensive chronic kidney disease with stage 5 chronic kidney disease or end stage renal disease; N18.6 End stage renal disease; Z99.2 Dependence on renal dialysis; F17.200 Nicotine dependence, unspecified, uncomplicated; Z90.49 Acquired absence of other specified parts of digestive tract; Z98.890 Other specified postprocedural states; Z79.899 Other long term (current) drug therapy; Z79.2 Long term (current) use of antibiotics; Z88.6 Allergy status to analgesic agent; Z88.1 Allergy status to other antibiotic agents; Z88.8 Allergy status to other drugs, medicaments and biological substances; W22.8XXA Striking against or struck by other objects, initial encounter; Y92.89 Other specified places as the place of occurrence of the external cause; Y93.89 Activity, other specified; Y99.8 Other external cause status
CPT/HCPCS: 71101; 96372; 99283; J2270

== ENCOUNTER 2023-07-10 20:59 | Emergency (ER) | payer OTHER ==
[~2023-07-10] VITALS: Ht 185.4 cm; Wt 97.5 kg
[2023-07-10 21:36] VITALS: BP 155/80; PULSE 81; RESP 16; TEMP 97.9; O2SAT 99
[2023-07-10 22:19] LABS: BASOPHILS % (AUTO) 0.4 % (0.0-2.0); EOSINOPHILS # (AUTO) 0.4 K/uL (0-0.4); EOSINOPHILS % (AUTO) 7.9 % (0.0-4.0); HEMATOCRIT 30.2 % (36-48); LYMPHOCYTES # (AUTO) 1.3 K/uL (2.5-16.5); LYMPHOCYTES % (AUTO) 25.7 % (20.5-51.1); MEAN CORPUSCULAR HEMOGLOBIN 34 pg (27-31); MEAN CORPUSCULAR HGB CONC 33 g/dL (33-37); MEAN CORPUSCULAR VOLUME 102.2 fL (80-94); MONOCYTES # (AUTO) 0.3 K/uL (0.8-1.0); MONOCYTES % (AUTO) 5.9 % (1.7-9.3); NEUTROPHILS # (AUTO) 3.1 K/uL (1.8-7.7); NEUTROPHILS % (AUTO) 60.1 % (42.2-75.2); PLATELET COUNT (AUTO) 183 K/uL (140-450); RED BLOOD CELL COUNT(AUTO) 2.96 MIL/uL (4.20-5.40); RED CELL DISTRIBUTION WIDTH 15.6 % (11.6-13.7); WHITE BLOOD COUNT (AUTO) 5.1 K/uL (4.8-10.8)
[2023-07-10 22:24] LABS: FLU A ANTIGEN negative (NEGATIVE); FLU B ANTIGEN NEGATIVE (NEGATIVE)
[2023-07-10] MEDS ORDERED: ONDANSETRON 4 MG/2 ML VIAL IVP ONE (22:50)
[2023-07-10] MEDS ORDERED: NACL 0.9% 500 ML IV ONE (22:50)
[2023-07-10] MEDS ORDERED: MORPHINE SULFATE 4 MG/ML SYR IVP ONE (22:50)
[2023-07-10 22:53] LABS: ALBUMIN 3.2 g/dL (3.4-5.0); ANION GAP 14.5 (8-16); CALCIUM 8.6 mg/dL (8.5-10.1); CARBON DIOXIDE 31.6 mmol/L (21-32); POTASSIUM 5.1 mmol/L (3.5-5.1); TOTAL BILIRUBIN 0.5 mg/dL (0.0-1.0); TOTAL PROTEIN, SERUM 6.4 g/dL (6.4-8.2)
[2023-07-10 23:03] LABS: CREATININE 8.6 mg/dL (0.6-1.3)
[2023-07-10] MEDS ORDERED: fentaNYL citrate 0.05 MG/ML VIAL IVP ONE (23:50)
[2023-07-10] MEDS ORDERED: ACET-8905 PO (23:59)
[2023-07-10] MEDS ORDERED: ONDA-188 PO (23:59)
[2023-07-11 00:25] VITALS: BP 153/88; PULSE 80; RESP 16; TEMP 97.9; O2SAT 99
== END 2023-07-11 00:25 | disposition home or self-care (01) ==
LOC: MED 20:59
DX: M79.10 Myalgia, unspecified site (principal); Z20.822 Contact with and (suspected) exposure to COVID-19; Z79.899 Other long term (current) drug therapy; I12.0 Hypertensive chronic kidney disease with stage 5 chronic kidney disease or end stage renal disease; N18.6 End stage renal disease; Z88.8 Allergy status to other drugs, medicaments and biological substances; Z99.2 Dependence on renal dialysis
CPT/HCPCS: 36415; 71045; 80053; 85025; 87426; 87804; 96374; 96375; 99284; J2270; J2405; J3010; J7030

== ENCOUNTER 2023-08-12 15:26 | Emergency (ER) | payer OTHER ==
[~2023-08-12] VITALS: Ht 185.4 cm; Wt 101.6 kg
[~2023-08-12 15:26] MED LIST changes: +ONDA-188 PO
[2023-08-12 15:44] VITALS: BP 155/87; PULSE 84; TEMP 97.7; O2SAT 99
[2023-08-12] MEDS ORDERED: MORPHINE SULFATE 4 MG/ML SYR IM ONE (16:10)
[2023-08-12] MEDS ORDERED: ACET-8905 PO (16:50)
[2023-08-12 17:01] VITALS: BP 148/84; PULSE 82; RESP 15; TEMP 98.1; O2SAT 99
== END 2023-08-12 17:09 | disposition home or self-care (01) ==
LOC: MED 15:26
DX: M25.511 Pain in right shoulder (principal); I12.0 Hypertensive chronic kidney disease with stage 5 chronic kidney disease or end stage renal disease; N18.6 End stage renal disease; Z99.2 Dependence on renal dialysis; Z79.899 Other long term (current) drug therapy; Z79.2 Long term (current) use of antibiotics; Z88.6 Allergy status to analgesic agent; Z88.8 Allergy status to other drugs, medicaments and biological substances; Z88.1 Allergy status to other antibiotic agents
CPT/HCPCS: 96372; 99283; J2270

== ENCOUNTER 2023-08-31 19:23 | Emergency (ER) | payer OTHER ==
[~2023-08-31] VITALS: Ht 185.4 cm; Wt 99.8 kg
[2023-08-31 20:20] VITALS: BP 192/101; PULSE 93; RESP 19; TEMP 98; O2SAT 99
[2023-08-31] MEDS ORDERED: HYDROcodone/APAP 10/325 MG 1 TAB TAB PO STA (20:57)
[2023-08-31] MEDS ORDERED: ACET-8905 PO (21:24)
[2023-08-31 22:00] VITALS: BP 192/101; PULSE 93; RESP 19; TEMP 98; O2SAT 99
== END 2023-08-31 22:00 | disposition home or self-care (01) ==
LOC: MED 19:23
DX: S46.911A Strain of unspecified muscle, fascia and tendon at shoulder and upper arm level, right arm, initial encounter (principal); I10 Essential (primary) hypertension; Q61.3 Polycystic kidney, unspecified; Z99.2 Dependence on renal dialysis; Z79.899 Other long term (current) drug therapy; Z79.2 Long term (current) use of antibiotics; Z88.6 Allergy status to analgesic agent; Z88.1 Allergy status to other antibiotic agents; Z88.8 Allergy status to other drugs, medicaments and biological substances; X58.XXXA Exposure to other specified factors, initial encounter; Y92.89 Other specified places as the place of occurrence of the external cause; Y93.89 Activity, other specified; Y99.8 Other external cause status
CPT/HCPCS: 73030; 99283

== ENCOUNTER 2023-12-30 08:38 | Emergency (ER) | payer OTHER ==
[~2023-12-30] VITALS: Ht 185.4 cm; Wt 98.9 kg
[~2023-12-30 08:38] MED LIST changes: +HYDR-5071 PO; -HYDR-5191 PO
[2023-12-30 08:47] VITALS: BP 164/91; PULSE 83; RESP 22; TEMP 97.3; O2SAT 100
[2023-12-30] MEDS ORDERED: ACET-8905 PO (10:12)
[2023-12-30] MEDS ORDERED: LEVO-481 PO (10:12)
[2023-12-30 10:24] VITALS: BP 132/70; PULSE 78; RESP 18; TEMP 98.3; O2SAT 97
== END 2023-12-30 10:25 | disposition home or self-care (01) ==
LOC: MED 08:38
DX: N76.0 Acute vaginitis (principal); I12.0 Hypertensive chronic kidney disease with stage 5 chronic kidney disease or end stage renal disease; F17.210 Nicotine dependence, cigarettes, uncomplicated; N18.6 End stage renal disease; Z99.2 Dependence on renal dialysis; Z90.49 Acquired absence of other specified parts of digestive tract; Z90.5 Acquired absence of kidney; Z79.1 Long term (current) use of non-steroidal anti-inflammatories (NSAID); Z79.899 Other long term (current) drug therapy; Z88.6 Allergy status to analgesic agent; Z88.1 Allergy status to other antibiotic agents; Z88.8 Allergy status to other drugs, medicaments and biological substances
CPT/HCPCS: 99283; 99284

== ENCOUNTER 2024-04-11 02:25 | Emergency (ER) | payer OTHER ==
[~2024-04-11] VITALS: Ht 185.4 cm; Wt 102.1 kg
[~2024-04-11 02:25] MED LIST changes: +LEVO-481 PO
[2024-04-11 02:30] VITALS: BP 176/95; PULSE 90; RESP 22; TEMP 97.5; O2SAT 99
[2024-04-11] MEDS: ONDANSETRON 4 MG ODT PO ONE (03:03)
[2024-04-11] MEDS ORDERED: ONDA8TAB87 PO (03:29)
[2024-04-11] MEDS: MORPHINE SULFATE 4 MG/ML SYR IM ONE (03:36)
[2024-04-11 03:39] VITALS: BP 160/80; PULSE 80; RESP 18; TEMP 97.5; O2SAT 98
[2024-04-11] MEDS ORDERED: HYDR-5071 PO (03:47)
== END 2024-04-11 03:39 | disposition home or self-care (01) ==
LOC: MED 02:25
DX: R10.9 Unspecified abdominal pain (principal); R11.2 Nausea with vomiting, unspecified; R19.7 Diarrhea, unspecified; I12.0 Hypertensive chronic kidney disease with stage 5 chronic kidney disease or end stage renal disease; N18.6 End stage renal disease; Z99.2 Dependence on renal dialysis; Z90.49 Acquired absence of other specified parts of digestive tract; Z90.89 Acquired absence of other organs; Z98.890 Other specified postprocedural states; Z79.1 Long term (current) use of non-steroidal anti-inflammatories (NSAID); Z79.2 Long term (current) use of antibiotics; Z79.899 Other long term (current) drug therapy; Z88.5 Allergy status to narcotic agent; Z88.8 Allergy status to other drugs, medicaments and biological substances
CPT/HCPCS: 96372; 99283; J2270; Q0162

== ENCOUNTER 2024-05-05 18:05 | Emergency (ER) | payer OTHER ==
[~2024-05-05] VITALS: Ht 185.4 cm; Wt 104.4 kg
[~2024-05-05 18:05] MED LIST changes: -ACET-10509 PO; +ACET500T99 PO; +ONDA8TAB87 PO
[2024-05-05 18:35] VITALS: BP 192/92; PULSE 91; RESP 20; TEMP 98; O2SAT 97
[2024-05-05] MEDS: MORPHINE SULFATE 4 MG/ML SYR IVP ONE (19:55)
[2024-05-05] MEDS: DICYCLOMINE 20 MG/2 ML VIAL IM ONE (20:02)
[2024-05-05 20:07] LABS: ALBUMIN 3.3 g/dL (3.4-5.0); ANION GAP 23.2 (8-16); CALCIUM 9.1 mg/dL (8.5-10.1); CARBON DIOXIDE 23.3 mmol/L (21-32); TOTAL BILIRUBIN 0.5 mg/dL (0.0-1.0); TOTAL PROTEIN, SERUM 7.3 g/dL (6.4-8.2)
[2024-05-05 20:10] LABS: CREATININE 11.5 mg/dL (0.6-1.3); POTASSIUM 6.5 mmol/L (3.5-5.1)
[2024-05-05 20:24] LABS: BASOPHILS # (AUTO) 0.1 K/uL (0.00-0.22); BASOPHILS % (AUTO) 0.8 % (0.0-2.0); EOSINOPHILS # (AUTO) 0.6 K/uL (0-0.4); HEMATOCRIT 33.7 % (36-48); HEMOGLOBIN 11.2 g/dL (12.0-16.0); LYMPHOCYTES # (AUTO) 1.3 K/uL (2.5-16.5); LYMPHOCYTES % (AUTO) 14.1 % (20.5-51.1); MEAN CORPUSCULAR HEMOGLOBIN 33 pg (27-31); MEAN CORPUSCULAR HGB CONC 33 g/dL (33-37); MONOCYTES # (AUTO) 0.7 K/uL (0.8-1.0); MONOCYTES % (AUTO) 7.2 % (1.7-9.3); NEUTROPHILS # (AUTO) 6.5 K/uL (1.8-7.7); NEUTROPHILS % (AUTO) 71.9 % (42.2-75.2); PLATELET COUNT (AUTO) 200 K/uL (140-450); RED BLOOD CELL COUNT(AUTO) 3.44 MIL/uL (4.20-5.40); RED CELL DISTRIBUTION WIDTH 16.3 % (11.6-13.7); WHITE BLOOD COUNT (AUTO) 9.1 K/uL (4.8-10.8)
[2024-05-05] MEDS: CALCIUM GLUC 1 GM/50 mL NS BAG 50 ML IV ONE (21:01)
[2024-05-05] MEDS: DEXTROSE 50% 50 ML SYR IVP ONE (21:03)
[2024-05-05] MEDS: INSULIN REGULAR, HUMAN 100 UNIT/ML VIAL IVP ONE (21:05)
[2024-05-05] MEDS: MORPHINE SULFATE 10 MG/ML VIAL IVP ONE (21:05)
[2024-05-05] MEDS: SODIUM ZIRCONIUM CYCLOSILICATE 10 GM POWD.PACK PO ONE (21:07)
[2024-05-05 22:56] VITALS: BP 157/82; PULSE 84; RESP 18; TEMP 98; O2SAT 99
== END 2024-05-05 22:56 | disposition left against medical advice (07) ==
LOC: MED 18:05
DX: I12.0 Hypertensive chronic kidney disease with stage 5 chronic kidney disease or end stage renal disease (principal); N18.6 End stage renal disease; Q61.3 Polycystic kidney, unspecified; R19.7 Diarrhea, unspecified; E87.5 Hyperkalemia; Z99.2 Dependence on renal dialysis; Z79.899 Other long term (current) drug therapy; Z88.6 Allergy status to analgesic agent; Z88.8 Allergy status to other drugs, medicaments and biological substances; Z88.1 Allergy status to other antibiotic agents
CPT/HCPCS: 36415; 74176; 80053; 83690; 84703; 85025; 93005; 96372; 96374; 96375; 96376; 99291; J0500; J0610; J1815; J2270